=== PATIENT | female | born 1980 | race Caucasian/White ===

== ENCOUNTER → 2017-12-09 01:50 | Emergency (ER) | payer OTHER ==
[~2017-12-09 01:50] MED LIST: Silver Sulfadiazine 1% 400gm* 1 APPLIC JAR TOPICAL ONE; Silver Sulfadiazine 1%* 20 GM TOPICAL ONE
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
[2017-12-09 04:01] VITALS: BP 104/64
== END | disposition home or self-care (01) ==
LOC: ED 01:50
DX: T23.222A Burn of second degree of single left finger (nail) except thumb, initial encounter (principal); T31.0 Burns involving less than 10% of body surface; X12.XXXA Contact with other hot fluids, initial encounter; Y92.9 Unspecified place or not applicable; Z88.5 Allergy status to narcotic agent
CPT/HCPCS: 99282; A9270-GY

== ENCOUNTER 2018-05-19 03:22 | Emergency (ER) | payer OTHER ==
[2018-05-19] MEDS ORDERED: Nicotine Inhaler* 10 MG AMP INH PRN (03:24)
[2018-05-19 03:52] LABS: Hematocrit 39 % (33-41); Hemoglobin 12.9 g/dL (12.0-16.0); Mean Corpuscular HGB Conc 33 g/dL (31-36); Mean Corpuscular Hemoglobin 29 pg (27-31); Mean Corpuscular Volume 88 fL (80-97); Mean Platelet Volume 9.2 fL (7.4-10.4); Platelet Count 210 10^3/uL (150-450); Red Blood Count 4.49 10^6 /uL (3.70-4.87); Red Cell Distribution Width 14 % (10.5-15); White Blood Count 5.2 10^3/uL (3.5-10.8)
[2018-05-19] MEDS ORDERED: Mouth Piece, Nicotine* 1 EACH CARTRIDGE INH ONE (04:00)
--- NOTE | 2018-05-19 04:11 | ED ---
Psychiatric Complaint - HPI Summary HPI Summary: This patient is a 38 year old F brought in by ambulance to [facility] with a chief complaint of depression and SI for awhile. This evening she reports drinking alcohol but denies drug use. Patient called EMS herself because she fears she wont make it through the night. Denies pertinent PMHx besides depression. - History Of Current Complaint Chief Complaint: EDMentalHealth Hx Obtained From: Patient Onset/Duration: Lasting Weeks Character: Depressed Aggravating Factor(s): Alcohol Use Associated Signs And Symptoms: Positive: Negative Has Suicidal: Reports: Thoughts - Allergies/Home Medications Allergies/Adverse Reactions: Allergies Allergy/AdvReac Type Severity Reaction Status Date / Time codeine Allergy Unknown Verified 12/09/17 03:12 Reaction Details tramadol Allergy Unknown Verified 12/09/17 03:12 Reaction Details Home Medications: Home Medications NK [No Home Medications Reported] 05/19/18 [History Confirmed 05/19/18] PMH/Surg Hx/FS Hx/Imm Hx Sensory History: Denies: Hx Deafness Opthamlomology History: Denies: Hx Legally Blind EENT History: Denies: Hx Deafness Neurological History: Denies: Hx Dementia Infectious Disease History: No Infectious Disease History: Denies: Traveled Outside the [place] in Last 30 Days - Family History Known Family History: Negative: Blood Disorder - Social History Alcohol Use: None Substance Use Type: Reports: None Smoking Status (MU): Never Smoked Tobacco Review of Systems Positive: Other - etoh intoxication Positive: Depressed All Other Systems Reviewed And Are Negative: Yes Physical Exam - Summary Physical Exam Summary: Appearance: mildly intoxicated Skin: Warm, dry, no obvious rash Eyes: sclera anicteric, no conjunctival pallor ENT: mucous membranes moist Neck: deferred Respiratory: No signs of respiratory distress Cardiovascular: Appears well perfused, pulses are nml Abdomen: deferred Musculoskeletal: Moving all 4 extremities without obvious discomfort Neurological: Awake and alert, mentation is normal, speech is fluent and appropriate Psychiatric: appears depressed Triage Information Reviewed: Yes Vital Signs On Initial Exam: Initial Vitals Temp Pulse Resp BP Pulse Ox 97.7 F 61 16 114/73 98 05/19/18 03:30 05/19/18 03:30 05/19/18 03:30 05/19/18 03:30 05/19/18 03:30 Vital Signs Reviewed: Yes Diagnostics - Vital Signs Vital Signs Temp Pulse Resp BP Pulse Ox 05/19/18 03:30 97.7 F 61 16 114/73 98 - Laboratory Lab Results: Lab Results 05/19/18 Range/Units 03:39 WBC 5.2 (3.5-10.8) 10^3/uL RBC 4.49 (3.70-4.87) 10^6 /uL Hgb 12.9 (12.0-16.0) g/dL Hct 39 (33-41) % MCV 88 (80-97) fL MCH 29 (27-31) pg MCHC 33 (31-36) g/dL RDW 14 (10.5-15) % Plt Count 210 (150-450) 10^3/uL MPV 9.2 (7.4-10.4) fL Neut % (Auto) Pending Lymph % (Auto) Pending [place] % (Auto) Pending Eos % (Auto) Pending Baso % (Auto) Pending Absolute Neuts (auto) Pending Absolute Lymphs (auto) Pending Absolute Monos (auto) Pending Absolute Eos (auto) Pending Absolute Basos (auto) Pending Absolute Nucleated RBC Pending Nucleated RBC % Pending Result Diagrams: 05/19/18 03:39 05/19/18 03:39 Lab Statement: Any lab studies that have been ordered have been reviewed, and results considered in the medical decision making process. Course/Dx - Course Course Of Treatment: 38 year old F brought in by ambulance due to depression and SI for awhile. This evening she reports drinking alcohol but denies drug use. Bloodwork is obtained. Patient sleeps while waiting for medical clearence for mental health evaluation. Patient will be signed out to Dr. Stanley awaiting etoh metabolism and mental health evaluation. - Differential Dx/Clinical Impression Provider Diagnosis: Substance abuse Discharge - Sign-Out/Discharge Documenting (check all that apply): Sign-Out Patient Signing out patient TO: Jv Stanley - [facility] Patient Received Moderate/Deep Sedation with Procedure: No - Discharge Plan Condition: Stable Disposition: HOME Referrals: Kelly Shin WET MACHINE CUTTER [Primary Care Provider] - Additional Instructions: Please follow up with your primary care physician in 1-3 days. RETURN TO THE EMERGENCY DEPARTMENT WITH ANY NEW OR WORSENING SYMPTOMS. - Billing Disposition and Condition Condition: STABLE Disposition: Home - Attestation Statements Document Initiated by Mesha: Yes Documenting Scribe: Ericka Bojorquez Provider For Whom Mesha is Documenting (Include Credential): Momo Obrien MD Scribe Attestation: I, Ericka Bojorquez, scribed for Momo Obrien MD on 05/22/18 at 1841. Scribe Documentation Reviewed: Yes Provider Attestation: The documentation as recorded by the coopere, Ericka Bojorquez accurately reflects the service I personally performed and the decisions made by me, Momo Obrien MD Status of Scribe Document: Viewed
[2018-05-19 04:14] LABS: ALT 14 U/L (7-52); AST 18 U/L (13-39); Albumin 4.7 g/dL (3.2-5.2); Albumin/Globulin Ratio 2.2 (1-3); Alkaline Phosphatase 38 U/L (34-104); Anion Gap 8 mmol/L (2-11); Blood Urea Nitrogen 6 mg/dL (6-24); CO2 Carbon Dioxide 26 mmol/L (22-32); Calcium 8.7 mg/dL (8.6-10.3); Chloride 105 mmol/L (101-111); EGFR African American 135.4 (>60); EGFR Non-African American 111.9 (>60); Globulin 2.1 g/dL (2-4); Glucose 101 mg/dL (70-100); Potassium 3.2 mmol/L (3.5-5.0); Sodium 139 mmol/L (135-145); Total Protein 6.8 g/dL (6.4-8.9)
[2018-05-19 04:17] LABS: ABS Basophils 0.1 10^3/ul (0-0.2); ABS Eosinophils 0 10^3/ul (0-0.6); ABS Lymphocytes 1.6 10^3/ul (1.0-4.8); ABS Monocytes 0.2 10^3/ul (0-0.8); ABS Neutrophils 3.3 10^3/ul (1.5-7.7); ABS Nucleated RBC 0 10^3/ul; Eosinophil % 0.9 %; Lymphocyte % 30.4 %; Nucleated Red Blood Cells % 0
[2018-05-19 04:31] LABS: Acetaminophen < 15 mcg/mL; Alcohol 184 mg/dL (<10); Salicylate < 2.50 mg/dL (<30)
[2018-05-19 04:47] LABS: TSH (Thyroid Stimulating Horm) 1.85 mcIU/mL (0.34-5.60)
--- NOTE | 2018-05-19 07:11 | ED ---
Progress - Progress Note Progress Note: The pt is a signout from Dr. Obrien pending etoh metabolism and mental health evaluation. As of 709, the pt has been medically cleared and is waiting for evaluation. Course/Dx - Course Course Of Treatment: The pt is a signout from Dr. Obrien pending etoh metabolism and mental health evaluation. As of 709, the pt is medically cleared for MHE. Spoke with mental health at 0851 who stated the patient is not suicidal and that her anxiety becomes heightened when she drinks. Dr. Carmona stated the patient is cleared to be discharged with a dx of substance abuse. - Diagnoses Provider Diagnoses: Substance abuse Discharge - Sign-Out/Discharge Documenting (check all that apply): Patient Departure, Receiving Sign-Out Receiving patient FROM: Momo Obrien Patient Received Moderate/Deep Sedation with Procedure: No - Discharge Plan Condition: Stable Disposition: HOME Referrals: Kelly Shin TREE TAPPING LABORER [Primary Care Provider] - Additional Instructions: Please follow up with your primary care physician in 1-3 days. RETURN TO THE EMERGENCY DEPARTMENT WITH ANY NEW OR WORSENING SYMPTOMS. - Billing Disposition and Condition Condition: STABLE Disposition: Home - Attestation Statements Document Initiated by Scribe: Yes Documenting Scribe: Sylvia Tran Provider For Whom Jaysonibradha is Documenting (Include Credential): Jv Stanley MD. Scribe Attestation: Sylvia Gong scribed for Jv Stanley MD. on 05/19/18 at 0917. Scribe Documentation Reviewed: Yes Provider Attestation: The documentation as recorded by the Sylvia mooney accurately reflects the service I personally performed and the decisions made by Terence sauceda MD. Status of Scribe Document: Viewed
[2018-05-19 09:00] VITALS: BP 105/56
== END 2018-05-19 08:58 | disposition home or self-care (01) ==
LOC: ED 03:22
DX: F10.129 Alcohol abuse with intoxication, unspecified (principal); F32.9 Major depressive disorder, single episode, unspecified; R45.851 Suicidal ideations; F41.9 Anxiety disorder, unspecified; Z88.5 Allergy status to narcotic agent
CPT/HCPCS: 36415; 80053; 80320; 80329; 84443; 85025; 99284; G0480

== ENCOUNTER 2019-05-06 04:16 | Emergency (ER) | payer OTHER ==
[2019-05-06 06:29] LABS: ABS Basophils 0.1 10^3/ul (0-0.2); ABS Eosinophils 1.2 10^3/ul (0-0.6); ABS Lymphocytes 1.1 10^3/ul (1.0-4.8); ABS Monocytes 0.8 10^3/ul (0-0.8); Eosinophil % 14.2 %; Hematocrit 38 % (35-47); Hemoglobin 12.8 g/dL (12.0-16.0); Lymphocyte % 13.8 %; Mean Corpuscular HGB Conc 34 g/dL (31-36); Mean Corpuscular Hemoglobin 29 pg (27-31); Mean Corpuscular Volume 86 fL (80-97); Mean Platelet Volume 9.1 fL (7.4-10.4); Platelet Count 209 10^3/uL (150-450); Red Blood Count 4.37 10^6 /uL (3.70-4.87); Red Cell Distribution Width 14 % (10-15); White Blood Count 8.2 10^3/uL (3.5-10.8)
--- NOTE | 2019-05-06 06:33 | ED ---
Respiratory - HPI Summary HPI Summary: Patient is a 39 y/o F presenting to [facility] with complaints of SOB, sore throat, mild cough, HANNA, and near syncope. She states that she developed cough and sore throat two days ago. Sx initially improved but then subsequently worsened again. She states that she awoke coughing; patient felt SOB, developed a HANNA, and states that she felt near syncopal. Some nausea is also noted. Vomiting, diarrhea, and fever are denied. 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 She denies PMHx and daily medications. Patient stats that she is allergic to pretty much every pain killer stronger than ibuprofen. LNMP was around a week ago. Patient is a former smoker, notes occasional alcohol usage, and denies substance abuse. No PSHx noted. FMHx of CVA and depression reported. Home medications and allergies are reviewed. - History of Current Complaint Chief Complaint: EDUpperRespComplaint Stated Complaint: COUGH, HEADACHE, Time Seen by Provider: 05/06/19 04:50 Pain Intensity: 2 - Allergy/Home Medications Allergies/Adverse Reactions: Allergies Allergy/AdvReac Type Severity Reaction Status Date / Time acetaminophen [From Vicodin] Allergy Unknown Verified 05/07/19 03:28 Reaction Details bee venom protein (honey bee) Allergy Unknown Verified 05/07/19 03:28 Reaction Details cat dander Allergy Unknown Verified 05/07/19 03:28 Reaction Details codeine Allergy Unknown Verified 05/07/19 03:28 Reaction Details hydrocodone [From Vicodin] Allergy Unknown Verified 05/07/19 03:28 Reaction Details tramadol Allergy Unknown Verified 05/07/19 03:28 Reaction Details Home Medications: Home Medications Benzonatate CAP* [Tessalon 100 MG CAP*] 100 mg PO TID PRN #20 cap 05/06/19 [Rx Confirmed 05/07/19] Fluticasone NASAL SPRAY 50MCG* [Flonase NASAL SPRAY 50MCG*] 1 spray BOTH NARES DAILY 05/06/19 [History Confirmed 05/07/19] Mirena IUD 1 applic VAGINAL ONCE 05/06/19 [History Confirmed 05/07/19] ALPRAZolam [Xanax] 0.5 mg PO SEE INSTRUCTIONS PRN 05/07/19 [History Confirmed ] Albuterol HFA INHALER* [Ventolin HFA Inhaler*] 2 puff INH Q6H PRN #1 mdi [Rx] traZODone TAB* [Desyrel TAB*] 50 mg PO BEDTIME 05/07/19 [History Confirmed 05/06] PMH/Surg Hx/FS Hx/Imm Hx Sensory History: Denies: Hx Legally Blind, Hx Deafness Opthamlomology History: Denies: Hx Legally Blind Neurological History: Denies: Hx Dementia Psychiatric History: Denies: Hx Eating Disorder, Hx of Violent Episodes Against Others Infectious Disease History: No Infectious Disease History: Denies: Traveled Outside the [place] in Last 30 Days - Family History Known Family History: Negative: Blood Disorder - Social History Alcohol Use: Weekly Alcohol Amount: 1 whiskey 05/06/19 Substance Use Type: Reports: None Smoking Status (MU): Former Smoker Review of Systems Positive: Fatigue Positive: Sore Throat Positive: Shortness Of Breath Gastrointestinal: Negative Positive: Nausea Positive: Rash Psychological: Normal All Other Systems Reviewed And Are Negative: Yes Physical Exam - Summary Physical Exam Summary: General: Well-developed, Well-nourished female. No acute distress. HEENT: Normocephalic, Atraumatic. Eyes: Conjuctiva normal, PERRL. Oropharynx: erythema of oropharynx; mucous membranes moist, (-) exudates. Neck: Soft, FROM, (-) lymphadenopathy, (-) thyromegaly, (-) JVD. Cardiovascular: Normal sinus rhythm, (-) murmur. Lungs: Decreased breath sounds bilaterally (-) wheezes, (-) rales, (-) rhonchi. Abdomen: Soft, non-tender, non-distended, (-) organomegaly, normal bowel sounds. Back: (-) CVA tenderness Extremities: No edema. Skin: Warm, dry, (-) rash. Neuro: Alert and oriented x3, moves all extremities equally. No ataxia. No gait disturbance. No sensory deficit. Normal strength, normal sensation. Psychiatric: Mood normal, affect normal. Triage Information Reviewed: Yes Vital Signs On Initial Exam: Initial Vitals Temp Pulse Resp BP Pulse Ox 98.7 F 71 15 120/56 98 05/06/19 04:20 05/06/19 04:20 05/06/19 04:20 05/06/19 04:20 05/06/19 04:20 Vital Signs Reviewed: Yes Procedures - Sedation Patient Received Moderate/Deep Sedation with Procedure: No Diagnostics - Vital Signs Vital Signs Temp Pulse Resp BP Pulse Ox 05/06/19 04:20 98.7 F 71 15 120/56 98 - Laboratory Result Diagrams: 05/06/19 06:20 05/06/19 06:20 Lab Statement: Any lab studies that have been ordered have been reviewed, and results considered in the medical decision making process. - Radiology CXR Radiology Interpretation Completed By: ED Physician Summary of Radiographic Findings: No acute process, pending official report. Re-Evaluation - Re-Evaluation First Eval Re-Evaluation Time: 06:55 Comment: Results of workup discussed, patient to be discharged to home. Disposition - Course Course Of Treatment: 39-year-old female presents from home with acute illness. She states it started about 2 days ago. With cough and sore throat. She has had worsening of her symptoms including headache. [place] dizzy and had a near syncopal episode tonight. Initially she felt like she may be getting better but then symptoms worsened. Patient states she awoke tonight coughing. Had shortness of breath. Headache. [place] like she was given a pass out. Workup here demonstrates a normal chest x-ray. Normal white count. Afebrile. Patient treated with Tessalon Perles. Discussed viral bronchitis with patient. Recommend rest, plenty of fluids. Follow with PCP. Follow up sooner for any worsening symptoms. - Diagnoses Provider Diagnoses: Viral bronchitis Discharge ED - Sign-Out/Discharge Documenting (check all that apply): Patient Departure - discharge - Discharge Plan Condition: Stable Disposition: HOME Prescriptions: Benzonatate CAP* [Tessalon 100 MG CAP*] 100 mg PO TID PRN #20 cap PRN Reason: Cough Patient Education Materials: Acute Bronchitis (ED) Referrals: Kelly Shin, [employer] [Primary Care Provider] - 3 Days Additional Instructions: PLEASE RETURN TO ED FOR ANY NEW OR WORSENING SYMPTOMS. PLEASE FOLLOW UP WITH YOUR PRIMARY CARE PHYSICIAN WITHIN THREE DAYS. - Billing Disposition and Condition Condition: STABLE Disposition: Home - Attestation Statements Document Initiated by Scribe: Yes Documenting Scribe: NAHUM ZHANG Provider For Whom Scribe is Documenting (Include Credential): LIUDMILA NGUYEN MD Scribe Attestation: I, NAHUM ZHANG, scribed for LIUDMILA NGUYEN MD on 05/10/19 at 0045. Scribe Documentation Reviewed: Yes Provider Attestation: The documentation as recorded by the scribeNAHUM accurately reflects the service I personally performed and the decisions made by me, LIUDMILA NGUYEN MD Status of Scribe Document: Viewed
[2019-05-06] MEDS ORDERED: Benzonatate CAP* 100 MG PO ONE (06:40)
[2019-05-06 06:48] LABS: ALT 10 U/L (7-52); AST 16 U/L (13-39); Albumin 4.5 g/dL (3.2-5.2); Alkaline Phosphatase 40 U/L (34-104); Anion Gap 7 mmol/L (2-11); BUN/Creatinine Ratio 9.8 (8-20); Blood Urea Nitrogen 6 mg/dL (6-24); CO2 Carbon Dioxide 26 mmol/L (22-32); Calcium 9.2 mg/dL (8.6-10.3); Chloride 106 mmol/L (101-111); EGFR African American 132.1 (>60); EGFR Non-African American 109.2 (>60); Globulin 2.3 g/dL (2-4); Glucose 98 mg/dL (70-100); Potassium 3.8 mmol/L (3.5-5.0); Sodium 139 mmol/L (135-145); Total Protein 6.8 g/dL (6.4-8.9)
[2019-05-06 06:53] LABS: HCG Pregnancy < 0.60 mIU/mL
[2019-05-06 07:24] VITALS: BP 113/67
== END 2019-05-06 07:24 | disposition home or self-care (01) ==
LOC: ED 04:16 → MED 04:22 → UNDOADMIN 04:22 → ED 07:24
DX: J20.8 Acute bronchitis due to other specified organisms (principal); R06.02 Shortness of breath; J02.9 Acute pharyngitis, unspecified; R05 Cough; R51 Headache; R55 Syncope and collapse; Z88.6 Allergy status to analgesic agent; Z87.891 Personal history of nicotine dependence; Z97.5 Presence of (intrauterine) contraceptive device
CPT/HCPCS: 36415; 71045; 80053; 83605; 84484; 84702; 85025; 99282; A9270-GY

== ENCOUNTER 2019-05-07 03:27 | Emergency (ER) | payer OTHER ==
--- NOTE | 2019-05-07 05:59 | ED ---
Respiratory - HPI Summary HPI Summary: Pt. is a 39 y.o female who presents to the ER for ongoing cough, sob, sore throat and nasal congestion x 3-4 days. Denies past medical hx. Former smoker. Pt. seen in ED yesterday and had unremarkable CXR and labs. Pt. was dx with bronchitis and rx tessalon pearls. Pt. states this morning she started coughing and feeling very SOB. She called 911 and was brought VIA EMS. Pt. states she received a breathing treatment in ambulance which resolved SOB. Pt. otherwise denies fever, leg swelling, recent surgery, hx of DVT. Sxs are mild in severity. No current modifying factors. - History of Current Complaint Chief Complaint: EDShortnessOfBreath Stated Complaint: BRONCHITIS PER EMS Time Seen by Provider: 05/07/19 05:35 Hx Obtained From: Patient Pain Intensity: 1 - Allergy/Home Medications Allergies/Adverse Reactions: Allergies Allergy/AdvReac Type Severity Reaction Status Date / Time acetaminophen [From Vicodin] Allergy Unknown Verified 05/07/19 03:28 Reaction Details bee venom protein (honey bee) Allergy Unknown Verified 05/07/19 03:28 Reaction Details cat dander Allergy Unknown Verified 05/07/19 03:28 Reaction Details codeine Allergy Unknown Verified 05/07/19 03:28 Reaction Details hydrocodone [From Vicodin] Allergy Unknown Verified 05/07/19 03:28 Reaction Details tramadol Allergy Unknown Verified 05/07/19 03:28 Reaction Details Home Medications: Home Medications Benzonatate CAP* [Tessalon 100 MG CAP*] 100 mg PO TID PRN #20 cap 05/06/19 [Rx Confirmed 05/07/19] Fluticasone NASAL SPRAY 50MCG* [Flonase NASAL SPRAY 50MCG*] 1 spray BOTH NARES DAILY 05/06/19 [History Confirmed 05/07/19] Mirena IUD 1 applic VAGINAL ONCE 05/06/19 [History Confirmed 05/07/19] ALPRAZolam [Xanax] 0.5 mg PO SEE INSTRUCTIONS PRN 05/07/19 [History Confirmed ] Albuterol HFA INHALER* [Ventolin HFA Inhaler*] 2 puff INH Q6H PRN #1 mdi [Rx] traZODone TAB* [Desyrel TAB*] 50 mg PO BEDTIME 05/07/19 [History Confirmed 05/06] PMH/Surg Hx/FS Hx/Imm Hx Previously Healthy: Yes Sensory History: Denies: Hx Legally Blind, Hx Deafness Opthamlomology History: Denies: Hx Legally Blind Neurological History: Denies: Hx Dementia Psychiatric History: Denies: Hx Eating Disorder, Hx of Violent Episodes Against Others Infectious Disease History: No Infectious Disease History: Denies: Traveled Outside the [place] in Last 30 Days - Family History Known Family History: Positive: Non-Contributory Negative: Blood Disorder - Social History Occupation: Employed Full-time Lives: Alone Alcohol Use: Weekly Alcohol Amount: 1 whiskey 05/06/19 Substance Use Type: Reports: None Smoking Status (MU): Former Smoker Review of Systems Constitutional: Negative Negative: Fever, Chills Positive: Sore Throat, Nasal Discharge Cardiovascular: Negative Positive: Shortness Of Breath, Cough Positive: Diarrhea. Negative: Abdominal Pain, Vomiting Musculoskeletal: Negative Skin: Negative Positive: Headache All Other Systems Reviewed And Are Negative: Yes Physical Exam Triage Information Reviewed: Yes Vital Signs On Initial Exam: Initial Vitals Temp Pulse Resp BP Pulse Ox 98.9 F 90 18 118/72 99 05/07/19 03:27 05/07/19 03:27 05/07/19 03:27 05/07/19 03:27 05/07/19 03:27 Vital Signs Reviewed: Yes Appearance: Positive: Well-Appearing - Pt. sitting up in bed in NAD> Skin: Positive: Warm, Dry Head/Face: Positive: Normal Head/Face Inspection Eyes: Positive: Normal, EOMI, [place]ED[place]ICK ENT: Positive: Pharyngeal erythema, TMs normal. Negative: Tonsillar swelling, Tonsillar exudate Neck: Positive: Supple, Nontender. Negative: Nuchal Rigidity Respiratory/Lung Sounds: Positive: Clear to Auscultation, Breath Sounds Present. Negative: Rales, Rhonchi, Wheezes Cardiovascular: Positive: Normal, RRR Neurological: Positive: Normal, CN Intact II-III Psychiatric: Positive: Affect/Mood Appropriate Procedures - Sedation Patient Received Moderate/Deep Sedation with Procedure: No Diagnostics - Vital Signs Vital Signs Temp Pulse Resp BP Pulse Ox 05/07/19 05:01 68 95 05/07/19 05:00 62 104/60 97 05/07/19 04:30 69 105/68 98 05/07/19 04:10 76 100 05/07/19 04:00 73 105/63 100 05/07/19 03:27 98.9 F 90 18 118/72 99 - Laboratory Lab Statement: Any lab studies that have been ordered have been reviewed, and results considered in the medical decision making process. Disposition - Course Course Of Treatment: Pt. with ongoing cough and SOB. Feeling better after breathing tx in ambulance. O2 98% on RA. PERC score 0. Flu swab neg. CXR yesterday negative. No fever. Suspect bronchitis. Will dc home with ventolin. To f.u with pcp in 2-3 days., Discussed supportive care. WIll return to er if sxs change or worsen. pt. understands and agrees with plan. - Differential Dx - Cardiopulmonary Differential Diagnoses - Cardiopulmonary: Asthma, Bronchitis, Influenza - Diagnoses Provider Diagnoses: Cough, Bronchitis Discharge ED - Sign-Out/Discharge Documenting (check all that apply): Patient Departure - Discharge Plan Condition: Improved Disposition: HOME Prescriptions: Albuterol HFA INHALER* [Ventolin HFA Inhaler*] 2 puff INH Q6H PRN #1 mdi PRN Reason: Shortness Of Breath Patient Education Materials: Acute Bronchitis (ED) Referrals: Kelly Shin, HRIS MANAGER [Primary Care Provider] - Additional Instructions: Call PCP today to schedule an appointment within 2-3 days Use inhaler as directed Increase fluids and rest Tylenol or Motrin for discomfort as directed Return to ER if symptoms change or worsen - Billing Disposition and Condition Condition: IMPROVED Disposition: Home
[2019-05-07] MEDS ORDERED: Albuterol HFA INHALER* 8 gm MDI INH ONE (06:31)
[2019-05-07 06:39] LABS: Influenza A Molecular Negative (Negative); Influenza B Molecular Negative (Negative)
[2019-05-07 07:21] VITALS: BP 102/65
== END 2019-05-07 07:22 | disposition home or self-care (01) ==
LOC: ED 03:27
DX: J40 Bronchitis, not specified as acute or chronic (principal); Z79.51 Long term (current) use of inhaled steroids; Z88.6 Allergy status to analgesic agent; Z91.030 Bee allergy status; Z88.5 Allergy status to narcotic agent; Z91.09 Other allergy status, other than to drugs and biological substances
CPT/HCPCS: 99283; A9270-GY